=== PATIENT | male | born 1965 | race Caucasian/White ===

== ENCOUNTER 2024-11-29 11:03 | Outpatient (CLI) | payer BC, SELFPAY ==
--- NOTE | 2024-11-29 11:14 | XR_ITS ---
WS: [id number] XR knee LT 3V* [id number] REASON FOR EXAM: M25.569 - Pain in unspecified knee FINDINGS: No fracture or focal bone lesion. Minimal narrowing of the medial knee joint space with minimal subchondral sclerosis and osteophytosis. Lateral joint space is intact and well preserved. Patellofemoral joint space is intact and well preserved with minimal subchondral sclerosis and osteophytosis of the patella. XR/XR knee LT 3V* [id number] IMPRESSION: Minimal osteoarthritis of the left knee as above.
== END 2024-11-29 11:04 | disposition home or self-care (01) ==
PROVIDERS: PCP Family Medicine; Visit Provider Family Medicine
DX: M17.12 Unilateral primary osteoarthritis, left knee (principal)
CPT/HCPCS: 73562